=== PATIENT | female | born 1980 | race Caucasian/White ===

== ENCOUNTER 2016-03-27 13:32 | Emergency (ER) | payer OTHER ==
[2016-03-27 14:26] VITALS: BP 136/78
--- NOTE | 2016-03-27 14:57 | UC ---
Lower Extremity/Ankle HPI - HPI Summary HPI Summary: The patient comes in today for: 1. Left ankle pain/injury: Onset: Yesterday, she fell. Palliative/Provocative: Movement makes it worse. She took Excedrin this AM, but it did not help. Quality: Throbbing/pressure. Region: Back of the left ankle. Severity: 8/10 Time: Constant. Associated symptoms: Event: The patient states that she fell down the stairs due to the ice. She fell about 24 hours ago. She went to work after the injury. Numbness: None. "I've always had issues with me ankles from playing sports." * - History of Current Complaint Chief Complaint: UCLowerExtremity Stated Complaint: LEFT ANKLE PAIN-FALL Time Seen by Provider: 03/27/16 14:52 Hx Obtained From: Patient Hx Last Menstrual Period: 2 weeks ago. ?: No - Allergies/Home Medications Allergies/Adverse Reactions: Allergies Allergy/AdvReac Type Severity Reaction Status Date / Time Aspirin Allergy Rash Verified 03/27/16 14:21 Bupropion [From Wellbutrin] Allergy Seizure Verified 03/27/16 14:21 PMH/Surg Hx/FS Hx/Imm Hx Previously Healthy: Yes Endocrine History Of: Denies: Diabetes, Thyroid Disease, Hyperthyroidism, Hypothyroidism, Dyslipidemia Cardiovascular History Of: Denies: Cardiac Disorders, Hypertension, Pacemaker/ICD, Myocardial Infarction , Congestive Heart Failure, Atrial Fibrillation, Deep Vein Thrombosis, Bleeding Disorders Respiratory History Of: Denies: COPD, Asthma, Bronchitis, Pneumonia, Pulmonary Embolism GI/ History Of: Denies: Gastroesophageal Reflux, Ulcer, Gastrointestinal Bleed, Gall Bladder Disease, Kidney Stones, Diverticulitis, Renal Disease, Urosepsis Neurological History Of: Denies: TIA, CVA, Dementia, Seizures, Migraine Psychological History Of: Denies: Anxiety, Depression, Bipolar Disorder, Schizophrenia, Post Traumatic Stress Disorder Cancer History Of: Denies: Lung Cancer, Colorectal Cancer, Breast Cancer, Prostate Cancer, Cervical Cancer Other History Of: Negative For: HIV, Hepatitis B, Hepatitis C, Anticoagulant Therapy - Surgical History Surgical History: Yes Surgery Procedure, Year, and Place: , 2000 2004, [facility]. Tubal Ligation , 2003, [facility]. Right Ankle Surgery, 2010, [place] - Family History Known Family History: Positive: Cardiac Disease, Hypertension, Diabetes, Other - RA - Social History Occupation: Employed Full-time Alcohol Use: Rare Substance Use Type: None Smoking Status (MU): Heavy Every Day Tobacco Smoker Type: Cigarettes Amount Used/How Often: 1/2 PPD Length of Time of Smoking/Using Tobacco: 20 Years Have You Smoked in the Last Year: Yes When Did the Patient Quit Smoking/Using Tobacco: TWO WEEKS AGO Household Exposure Type: Cigarettes - Immunization History Most Recent Influenza Vaccination: Not the Season Review of Systems Constitutional: Negative Skin: Negative Eyes: Negative ENT: Negative Respiratory: Negative Cardiovascular: Negative Gastrointestinal: Negative Genitourinary: Negative Musculoskeletal: Arthralgia, Myalgia All Other Systems Reviewed And Are Negative: Yes Physical Exam Triage Information Reviewed: Yes Appearance: Well-Appearing, No Pain Distress - When sitting still., Well- Nourished Vital Signs: Initial Vital Signs Temp 98.2 F 03/27/16 14:20 Pulse 78 03/27/16 14:20 Resp 16 03/27/16 14:20 BP 136/78 03/27/16 14:20 Pulse Ox 100 03/27/16 14:20 Vital Signs Reviewed: Yes Eyes: Positive: Conjunctiva Clear. Negative: Discharge ENT: Positive: Hearing grossly normal. Negative: Pharyngeal erythema, Nasal congestion, Nasal drainage, TM bulging, TM dull, TM red, Tonsillar swelling, Tonsillar exudate Dental: Negative: Gross Decay/Caries @, Dental Fracture @ Neck: Positive: Supple, Nontender, No Lymphadenopathy. Negative: Nuchal Rigidity Respiratory: Positive: Chest non-tender, Lungs clear, No respiratory distress, No accessory muscle use. Negative: Crackles, Wheezing Cardiovascular: Positive: RRR, No Murmur Abdomen Description: Positive: Nontender, No Organomegaly, Soft. Negative: Distended, Guarding Musculoskeletal: Positive: Other: - Squeezing the calf muscles with the patient in the prone position did cause plantar flexion. Slight dorsiflexion and palpation of the Achilles tendon did not reveal any depression. There was pain with the above movement. However, there was no edema or ecchymosis. Neurological: Positive: Alert, Muscle Tone Normal Psychological: Positive: Age Appropriate Behavior, Consolable Skin: Negative: rashes, breakdown Diagnostics - Laboratory Diagnostic Studies Completed/Ordered: Left ankle x-ray report: IMPRESSION: Chronic small heel spurs. No traumatic injury evident. - Radiology No standard instances Xray Interpretation: No Acute Changes Radiology Interpretation Completed By: Radiologist Lower Extremity Course/Dx - Course Course Of Treatment: Patient was told of her x-ray reading. At this time, she does not want crutches or a gel splint as she has a cam boot. She did not want a work note. She has a relationship with a family orthopedic surgeon (Dr. Myers ) and she was encouraged to follow back up with Dr. Myers to make sure that she is doing well. If she gets worse, she is to see us. - Differential Dx/Diagnosis Differential Diagnosis/HQI/PQRI: Cellulitis, Gout, Sprain, Strain Provider Diagnoses: Left ankle sprain. Discharge - Discharge Plan Condition: Stable Disposition: HOME Patient Education Materials: Ankle Sprain (ED) Additional Instructions: Please follow up with your family orthopedic surgeon (Dr. Myers) later this week to see how well you are doing. If you get worse, please be seen sooner by us or the ER.
[2016-03-27] MEDS ORDERED: HYDROcodone/ACETAMIN 5-325 MG* 1 TAB PO ONE (15:06)
--- NOTE | 2016-03-27 15:28 | RAD ---
Indication: Posterior LEFT ankle pain in the Achilles region post fall yesterday. Comparison: September 27, 2015 LEFT hindfoot radiographs. Technique: AP, mortise, and lateral views LEFT ankle. Report: Normal articular alignment. Negative for fracture. Small Achilles tendon insertion and small plantar fascia origin bone spurs. Unremarkable soft tissue contours. IMPRESSION: Chronic small heel spurs. No traumatic injury evident.
== END 2016-03-27 15:54 | disposition home or self-care (01) ==
LOC: UCCORT 13:32
DX: S93.402A Sprain of unspecified ligament of left ankle, initial encounter (principal); M77.32 Calcaneal spur, left foot; W00.1XXA Fall from stairs and steps due to ice and snow, initial encounter; Y92.9 Unspecified place or not applicable; Z87.891 Personal history of nicotine dependence; Z88.6 Allergy status to analgesic agent; Z88.8 Allergy status to other drugs, medicaments and biological substances
CPT/HCPCS: 99212; G0463

== ENCOUNTER 2016-06-11 18:40 | Emergency (ER) | payer SELFPAY ==
[2016-06-11 19:24] VITALS: BP 125/77
--- NOTE | 2016-06-11 19:52 | UC ---
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 Has an enlaring hematoma of the thenar eminence. - History Of Current Complaint Chief Complaint: UCUpperExtremity Stated Complaint: RIGHT HAND INJURY Time Seen by Provider: 06/11/16 19:42 Hx Obtained From: Patient Hx Last Menstrual Period: 05/27/16 Onset/Duration: Sudden Onset Severity Initially: Moderate Severity Currently: Moderate Pain Intensity: 8 Pain Scale Used: 0-10 Numeric Character Of Pain: Aching, Throbbing Aggravating Factor(s): Movement Alleviating: Ice Associated Signs And Symptoms: Positive: Swelling Related History: Dominant Hand Right - Allergies/Home Medications Allergies/Adverse Reactions: Allergies Allergy/AdvReac Type Severity Reaction Status Date / Time Aspirin Allergy Rash Verified 06/11/16 19:23 Bupropion [From Wellbutrin] Allergy Seizure Verified 06/11/16 19:23 Home Medications: Home Medications NK [No Home Medications Reported] 06/11/16 [History Confirmed 06/11/16] PMH/Surg Hx/FS Hx/Imm Hx Previously Healthy: Yes Endocrine History Of: Denies: Diabetes, Thyroid Disease, Hyperthyroidism, Hypothyroidism, Dyslipidemia Cardiovascular History Of: Denies: Cardiac Disorders, Hypertension, Pacemaker/ICD, Myocardial Infarction , Congestive Heart Failure, Atrial Fibrillation, Deep Vein Thrombosis, Bleeding Disorders Respiratory History Of: Denies: COPD, Asthma, Bronchitis, Pneumonia, Pulmonary Embolism GI/ History Of: Denies: Gastroesophageal Reflux, Ulcer, Gastrointestinal Bleed, Gall Bladder Disease, Kidney Stones, Diverticulitis, Renal Disease, Urosepsis Neurological History Of: Denies: TIA, CVA, Dementia, Seizures, Migraine Psychological History Of: Denies: Anxiety, Depression, Bipolar Disorder, Schizophrenia, Post Traumatic Stress Disorder Cancer History Of: Denies: Lung Cancer, Colorectal Cancer, Breast Cancer, Prostate Cancer, Cervical Cancer Other History Of: Negative For: HIV, Hepatitis B, Hepatitis C, Anticoagulant Therapy - Surgical History Surgical History: Yes Surgery Procedure, Year, and Place: , 2000 2003, [facility]. Tubal Ligation , 2003, [facility]. Right Ankle Surgery, 2010, [place] - Family History Known Family History: Positive: Cardiac Disease, Hypertension, Diabetes, Other - RA - Social History Lives: With Family Alcohol Use: Rare Substance Use Type: None Smoking Status (MU): Heavy Every Day Tobacco Smoker Type: Cigarettes Amount Used/How Often: 1/2 PPD Length of Time of Smoking/Using Tobacco: 20 Years Have You Smoked in the Last Year: Yes When Did the Patient Quit Smoking/Using Tobacco: TWO WEEKS AGO Household Exposure Type: Cigarettes - Immunization History Most Recent Influenza Vaccination: Not the 2015/2016 Season Review of Systems Constitutional: Other - feels great, healthy, with no symptoms. Skin: Negative Eyes: Negative ENT: Negative Respiratory: Negative Cardiovascular: Negative Gastrointestinal: Negative Genitourinary: Negative Motor: Negative Neurovascular: Negative Musculoskeletal: Other: - right hand and wrist pain Neurological: Negative Psychological: Negative All Other Systems Reviewed And Are Negative: Yes Physical Exam Triage Information Reviewed: Yes Appearance: Well-Appearing Vital Signs: Initial Vital Signs Temp 97.2 F 06/11/16 19:20 Pulse 82 06/11/16 19:20 Resp 16 06/11/16 19:20 BP 125/77 06/11/16 19:20 Pulse Ox 100 06/11/16 19:20 Respiratory: Positive: Lungs clear, Normal breath sounds Cardiovascular: Positive: RRR, No Murmur Musculoskeletal: Positive: ROM Limited @ - right thumb decreased abduction, decreased extension of the right wrist. Swelling and induration of the right thenar eminence, suggestive of hematoma. Psychological Exam: Normal Diagnostics - Laboratory Diagnostic Studies Completed/Ordered: xray shows soft tissue swelling. Hand/Wrist Course/Dx - Course Course Of Treatment: splint, continue ice, hydrocodone for use tonight. - Differential Dx/Diagnosis Differential Diagnosis/HQI/PQRI: Sprain, Strain, Other - hematoma, crush injury Provider Diagnoses: crush injury right hand with soft tissue swelling/hematoma Discharge - Discharge Plan Condition: Stable Disposition: HOME Patient Education Materials: Crush Injury (ED) Referrals: Milka Flowers RN [Primary Care Provider] - Carolina Ignacio MD [Medical Doctor] - Additional Instructions: The swelling and bruising in your hand will take several weeks to heal. You have a referral to orthopedics to evaluate the ganglion on your wrist. When you schedule the visit ask to be seen in [place]. As discussed, you think that you can manage work without modifications.
[2016-06-11] MEDS ORDERED: Acetaminophen TAB* 325 MG PO ONE (19:53)
--- NOTE | 2016-06-11 20:18 | RAD ---
INDICATION: Pain at the RIGHT first and second metacarpals following crush injury. COMPARISON: December 23, 2013 TECHNIQUE: AP, lateral, and oblique views RIGHT hand. REPORT: Normal articular alignment. Negative for fracture. Mild soft tissue swelling over the dorsum of the hand at the level of the metacarpal phalangeal joints. IMPRESSION: Mild dorsal soft tissue swelling without additional finding.
[2016-06-11] MEDS ORDERED: HYDROcodone/ACETAMIN 5-325 MG* 1 TAB PO ONE (20:39)
== END 2016-06-11 20:50 | disposition home or self-care (01) ==
LOC: UCCORT 18:40
DX: S67.21XA Crushing injury of right hand, initial encounter (principal); W20.8XXA Other cause of strike by thrown, projected or falling object, initial encounter; Y93.9 Activity, unspecified; Y99.9 Unspecified external cause status; Z88.6 Allergy status to analgesic agent; Z88.8 Allergy status to other drugs, medicaments and biological substances
CPT/HCPCS: 99212; A9270-GY; G0463

== ENCOUNTER 2016-06-30 07:29 | Day surgery (SDC) | payer OTHER ==
--- NOTE | 2016-06-20 10:00 | HP ---
PREOPERATIVE HISTORY AND PHYSICAL: DATE OF SURGERY/ADMISSION: 06/30/16 [facility] ATTENDING SURGEON: Carolina Ignacio MD (dictated by SWATI Levine) PROCEDURE: Right wrist excision mass. CHIEF COMPLAINT: Mass, right wrist. HISTORY OF PRESENT ILLNESS: This is a 36-year-old female who complains of a lump on the volar radial aspect of her right wrist that has been present for about 3 months. The patient denies any injury; however, she works in a [employer] and is doing a lot of repetitive motions with her wrists and hands. The lump has become very painful and it bothers her when she is working. It feels better when she does not use her wrist. She is interested in having it removed surgically at this time and has agreed to proceed with excision of the mass. PAST MEDICAL HISTORY: 1. Asthma, exercise induced. 2. Arthritis. PAST SURGICAL HISTORY: 1. x2. 2. Right ankle surgery in 2009. CURRENT MEDICATIONS: Ventolin inhaler. ALLERGIES: 1. ASPIRIN causes hives. 2. WELLBUTRIN causes seizure. FAMILY HISTORY: Hypertension and diabetes. SOCIAL HISTORY: The patient is employed at a [employer] in [place]. She is a current smoker, approximately a quarter of a pack per day and has smoked for the past 20 years. She denies recreational drug use and admits to alcohol use on very rare occasions. REVIEW OF SYSTEMS: General: Negative for fevers, chills or night sweats. No known anesthesia problems. HEENT: Negative for headache, lightheadedness or syncopal episodes. Integumentary: Negative for abrasions, lesions, or open wounds. Cardiothoracic: Negative for hypertension, chest pain, palpitations, or edema. Pulmonary: Positive for asthma and associated shortness of breath with exertion. Negative for chronic cough or COPD. GI: Negative for nausea, vomiting, diarrhea, constipation or GERD. : Negative for nocturia, urinary frequency, urgency, history of UTIs, or kidney problems. Musculoskeletal: Positive for current complaint. Negative for chronic or intermittent back pain. Neurological: Positive for history of seizure related to Wellbutrin. Negative for paresthesias, numbness, history of stroke, or epilepsy. Endocrine : Negative for diabetes or thyroid issues. Hematologic: Negative for easy bruising, anemia, excessive bleeding, or history of DVT. Infectious Disease: Negative for history of MRSA, hepatitis C, or HIV. PHYSICAL EXAMINATION GENERAL: Well-developed, well-nourished 36-year-old female in no acute distress. VITAL SIGNS: Height 5 feet 3.5 inches, weight 192 pounds. Pulse rate 70, blood pressure 125/86. HEENT: Normocephalic, atraumatic. Pupils are equal, round, and reactive to light and accommodation. Extraocular movements are intact. NECK: Supple. No palpable lymph nodes. Throat is clear. PULMONARY: Lungs are clear to auscultation bilaterally. No wheezes, rales or rhonchi. CARDIOVASCULAR: Regular rate and rhythm. S1 and S2. No murmurs, rubs, or gallops. No edema. ABDOMEN: Positive bowel sounds, soft, nontender. NEUROLOGIC: Alert and oriented x3. Cranial nerves II through XII are intact. Sensation is intact to light touch. PERIPHERAL VASCULAR: 2+ radial and ulnar pulses. Negative Morales test. MUSCULOSKELETAL: On exam of her right wrist, she has a 6 to 8 mm diameter tender mass on the volar radial aspect of the wrist. She can flex and extend the wrists well, but has increased pain with wrist extension, especially with load bearing. She has full flexion and extension of her fingers and neurovascular function is intact. IMPRESSION: Ganglion cyst, right wrist. PLAN: The patient is scheduled to undergo right wrist excision mass with Dr. Ignacio on 06/30/16. She will return to the office 10 to 14 days postop for followup and suture removal. A prescription for Ultracet was e-scribed to the patient's pharmacy for postoperative pain management. SWATI LEVINE [id number]/[facility] #: [id number] RUSSEL
[~2016-06-30 07:29] MED LIST: Buffered Lidocaine 1% SYR 3ML* 3 ML/SYR SYRINGE INTRADERM ONE
[2016-06-30] MEDS ORDERED: Buffered Lidocaine 1% SYRIN* 5 ML/SYR SYRINGE ONE (07:45)
[2016-06-30] MEDS ORDERED: Lidocaine 1% INJ* 10 MG/ML 30 ML SDV ONE (08:17)
[2016-06-30] MEDS ORDERED: fentaNYL* 50 MCG/ML 2 ML VIAL (100 MCG VIAL) ONE (08:42)
[2016-06-30] MEDS ORDERED: Midazolam* 1 MG/ML 5 ML VIAL (5 MG) ONE (08:42)
[2016-06-30] MEDS ORDERED: Ondansetron INJ* 2 MG/ML VIAL IV PRN (09:05)
[2016-06-30 10:13] VITALS: BP 121/94
--- NOTE | 2016-07-01 | OP ---
DATE OF OPERATION: 06/30/[address] [facility] DATE OF : 80 SURGEON: Carolina Ignacio MD [employer] PERSON: SWATI Odonnell ANESTHESIOLOGIST: Patria Castillo MD ANESTHESIA: Local MAC. PRE-OP DIAGNOSIS: Right wrist mass. POST-OP DIAGNOSIS: Right wrist mass. OPERATIVE PROCEDURE: Removal of right wrist mass. ESTIMATED BLOOD LOSS: Zero. TOURNIQUET TIME: Approximately 8 minutes. INDICATIONS FOR PROCEDURE: Annamaria is a 36-year-old female with a painful mass on the volar radial aspect of her right wrist. She presents for right wrist mass removal. DESCRIPTION OF PROCEDURE: The patient was brought to the operating room. She was given a sedation anesthetic and a local infiltration of 10 cc of 1% plain lidocaine. The skin of her right hand and forearm was prepped and draped in the usual sterile fashion. The hand and forearm were exsanguinated and tourniquet elevated to 250 mmHg. A Chevron incision was made centered over the mass. We dissected bluntly into the subcutaneous tissue. The mass was emanating from the FCR tendon sheath and from the STT joint, was carefully traced down to the STT joint, and removed with the small portion of the wrist joint capsule. The edges of the capsule were cauterized with the Bovie. The wound was irrigated. The skin edges reapproximated with 4-0 nylon suture. The wound was dressed with Xeroform, 4x4, Webril and an Wing wrap. The patient tolerated the procedure well and was brought to the recovery room in good condition. [id number]/[facility] #: [id number] [facility] CENTERCorey
== END 2016-06-30 10:09 | disposition home or self-care (01) ==
LOC: OREAST 07:29
PROVIDERS: ATTEND Orthopaedic Surgery
DX: M67.431 Ganglion, right wrist (principal); F17.210 Nicotine dependence, cigarettes, uncomplicated
CPT/HCPCS: 88304; J2001; J2250; J3010

== ENCOUNTER 2017-05-11 15:05 | Emergency (ER) | payer OTHER ==
[2017-05-11 15:42] VITALS: BP 138/85
--- NOTE | 2017-05-11 16:07 | UC ---
Lower Extremity/Ankle HPI - HPI Summary HPI Summary: Pt c/o possible FB, wooden sliver in bottom of left foot. Pt attempted to remove at home. - History of Current Complaint Chief Complaint: UCLowerExtremity Stated Complaint: LFT FOOT INJURY Time Seen by Provider: 05/11/17 15:45 Hx Obtained From: Patient Hx Last Menstrual Period: 05/27/16 ?: No Onset/Duration: Sudden Onset Severity Initially: Mild Severity Currently: Mild Pain Intensity: 8 Aggravating Factor(s): Standing, Ambulation Alleviating Factor(s): Rest, Elevation Able to Bear Weight: Yes - minimal - Risk Factors DVT Risk Factors: Negative Septic Arthritis Risk Factor: Negative - Allergies/Home Medications Allergies/Adverse Reactions: Allergies Allergy/AdvReac Type Severity Reaction Status Date / Time aspirin Allergy Rash Verified 05/11/17 15:33 bupropion [From Wellbutrin] Allergy See Comment Verified 05/11/17 15:33 Home Medications: Home Medications Levothyroxine TAB* [Synthroid TAB*] 50 mcg DAILY 05/11/17 [History Confirmed ] PMH/Surg Hx/FS Hx/Imm Hx Previously Healthy: Yes Other History Of: Negative For: HIV, Hepatitis B, Hepatitis C, Anticoagulant Therapy - Surgical History Surgical History: Yes Surgery Procedure, Year, and Place: , 2000 2003, [facility]. Tubal Ligation , 2003, [facility]. Right Ankle Surgery, 2010, [place]. Hysterectomy, JAN 2017, [facility] - Family History Known Family History: Positive: Cardiac Disease, Hypertension, Diabetes, Other - RA - Social History Occupation: Employed Full-time Lives: With Family Alcohol Use: None Substance Use Type: None Smoking Status (MU): Heavy Every Day Tobacco Smoker Type: Cigarettes Amount Used/How Often: 1/2 PPD for 21 years Length of Time of Smoking/Using Tobacco: 20 Years Have You Smoked in the Last Year: Yes When Did the Patient Quit Smoking/Using Tobacco: TWO WEEKS AGO Household Exposure Type: Cigarettes - Immunization History Most Recent Influenza Vaccination: Not the 2015/2016 Season Review of Systems Constitutional: Negative Skin: Other - possible FB Eyes: Negative ENT: Negative Respiratory: Negative Cardiovascular: Negative Gastrointestinal: Negative Genitourinary: Negative Motor: Negative Neurovascular: Negative Musculoskeletal: Negative Neurological: Negative Psychological: Negative Is Patient Immunocompromised?: No All Other Systems Reviewed And Are Negative: Yes Physical Exam Triage Information Reviewed: Yes Appearance: Well-Appearing Vital Signs: Initial Vital Signs Temp 97.6 F 05/11/17 15:36 Pulse 72 05/11/17 15:36 Resp 16 05/11/17 15:36 BP 138/85 05/11/17 15:36 Pulse Ox 100 05/11/17 15:36 Vital Signs Reviewed: Yes Eye Exam: Normal ENT Exam: Normal Dental Exam: Normal Respiratory: Positive: No respiratory distress Musculoskeletal Exam: Normal Neurological Exam: Normal Psychological Exam: Normal Skin Exam: Other - FB removed, tiny wooden splinter removed Lower Extremity Course/Dx - Differential Dx/Diagnosis Differential Diagnosis/HQI/PQRI: Foreign Body Provider Diagnoses: FB removed left foot Discharge - Sign-Out/Discharge Documenting (check all that apply): Discharge - Discharge Plan Condition: Stable Disposition: HOME Patient Education Materials: Soft Tissue Foreign Body (ED) Referrals: Christine KOCH DIRECTOR ONLINE MARKETINGMilka [Primary Care Provider] - If Needed - Billing Disposition and Condition Condition: STABLE Disposition: HOME
== END 2017-05-11 15:59 | disposition home or self-care (01) ==
LOC: UCCORT 15:05
DX: S90.852A Superficial foreign body, left foot, initial encounter (principal); W45.8XXA Other foreign body or object entering through skin, initial encounter; Y92.9 Unspecified place or not applicable; F17.210 Nicotine dependence, cigarettes, uncomplicated; Z88.6 Allergy status to analgesic agent
CPT/HCPCS: 28190; 99211; G0463

== ENCOUNTER 2017-05-19 07:43 | Emergency (ER) | payer OTHER ==
[2017-05-19 08:01] VITALS: BP 124/79
[2017-05-19] MEDS ORDERED: Acetaminophen TAB* 325 MG PO ONE (08:18)
--- NOTE | 2017-05-19 08:25 | UC ---
Upper Extremity HPI - HPI Summary HPI Summary: pt got her R ring finger crush under a heavy tool box yesterday. c/o pain, swelling and tingling to finger. states it is hard to bend and straighten due to her pain. - History of Current Complaint Chief Complaint: UCUpperExtremity Stated Complaint: RIGHT RING FINGER INJURY Time Seen by Provider: 05/19/17 08:13 Hx Obtained From: Patient Hx Last Menstrual Period: 01/2017 Onset/Duration: Sudden Onset Pain Intensity: 8 Character: Aching, Throbbing Aggravating Factor(s): Movement, Flexion, Extension Alleviating Factor(s): Nothing Associated Signs And Symptoms: Positive: Swelling, Bruising, Numbness/Tingling - Allergies/Home Medications Allergies/Adverse Reactions: Allergies Allergy/AdvReac Type Severity Reaction Status Date / Time aspirin Allergy Rash Verified 05/19/17 08:02 bupropion [From Wellbutrin] Allergy See Comment Verified 05/19/17 08:02 Home Medications: Home Medications Ibuprofen TAB* [Motrin TAB* 800 MG] 800 mg PO ONCE PRN 05/19/17 [History Confirmed 05/19/17] PMH/Surg Hx/FS Hx/Imm Hx Endocrine History: Thyroid Disease Other History Of: Negative For: HIV, Hepatitis B, Hepatitis C, Anticoagulant Therapy - Surgical History Surgical History: Yes Surgery Procedure, Year, and Place: , 2000 2003, [facility]. Tubal Ligation , 2003, [facility]. Right Ankle Surgery, 2010, [place]. Hysterectomy, JAN 2017, [facility] - Family History Known Family History: Positive: Cardiac Disease, Hypertension, Diabetes, Other - RA - Social History Occupation: Employed Full-time Lives: With Family Alcohol Use: None Substance Use Type: None Smoking Status (MU): Heavy Every Day Tobacco Smoker Type: Cigarettes Amount Used/How Often: 1/2 PPD for 21 years Length of Time of Smoking/Using Tobacco: 20 Years Have You Smoked in the Last Year: Yes When Did the Patient Quit Smoking/Using Tobacco: TWO WEEKS AGO Household Exposure Type: Cigarettes - Immunization History Most Recent Influenza Vaccination: Not the 2015/2016 Season Most Recent Tetanus Shot: 2009 Review of Systems Constitutional: Negative Skin: Negative Eyes: Negative ENT: Negative Respiratory: Negative Cardiovascular: Negative Gastrointestinal: Negative Genitourinary: Negative Motor: Negative Neurovascular: Negative Musculoskeletal: Other: - pain, swelling R 4th finger Neurological: Negative Psychological: Negative Is Patient Immunocompromised?: No All Other Systems Reviewed And Are Negative: Yes Physical Exam Triage Information Reviewed: Yes Appearance: Well-Appearing Vital Signs: Initial Vital Signs Temp 98.6 F 05/19/17 07:55 Pulse 74 05/19/17 07:55 Resp 18 05/19/17 07:55 BP 124/79 05/19/17 07:55 Pulse Ox 100 05/19/17 07:55 Vital Signs Reviewed: Yes Eyes: Positive: Conjunctiva Clear ENT: Positive: Normal ENT inspection Neck: Positive: Supple, Nontender Respiratory: Positive: Lungs clear, Normal breath sounds Cardiovascular: Positive: RRR, No Murmur Abdomen Description: Positive: Nontender, No Organomegaly, Soft Bowel Sounds: Positive: Present Musculoskeletal: Positive: Other: - R 4th finger with tenderness, swelling and purple bruising. Limited flexion/extension(pt refusing due to pain). Rest of hand is atraumatic with full s/v/m function. Neurological: Positive: Alert Psychological: Positive: Age Appropriate Behavior Skin Exam: Normal Diagnostics - Radiology No standard instances Radiology Interpretation Completed By: Radiologist - no fx, sts Upper Extremity Course/Dx - Course Course Of Treatment: Procedure: volar aluminum foam splint R 4th finger. s/v intact after. splint applied by myself. No concern for infection or compartment syndrom - Differential Dx/Diagnosis Provider Diagnoses: Contusion R 4th finger Discharge - Sign-Out/Discharge Documenting (check all that apply): Discharge - Discharge Plan Condition: Stable Disposition: HOME Patient Education Materials: Contusion in Adults (ED) Referrals: Milka Flowers RN [Primary Care Provider] - 7 Days Additional Instructions: SPLINT FOR COMFORT - Billing Disposition and Condition Condition: STABLE Disposition: HOME
--- NOTE | 2017-05-19 08:49 | RAD ---
INDICATION: Right ring finger injury. TECHNIQUE: 3 views of the right ring finger were obtained. FINDINGS: There is diffuse soft tissue swelling. The bones are in normal alignment. No fracture is seen. Joint spaces appear maintained. IMPRESSION: SOFT TISSUE SWELLING, NO FRACTURE IS SEEN.
== END 2017-05-19 09:17 | disposition home or self-care (01) ==
LOC: UCCORT 07:43
DX: S60.041A Contusion of right ring finger without damage to nail, initial encounter (principal); W23.0XXA Caught, crushed, jammed, or pinched between moving objects, initial encounter; Y93.9 Activity, unspecified; Y92.9 Unspecified place or not applicable; Y99.0 Civilian activity done for income or pay; Z88.6 Allergy status to analgesic agent; Z88.8 Allergy status to other drugs, medicaments and biological substances; Z87.891 Personal history of nicotine dependence
CPT/HCPCS: 73140; 99212; A9270-GY; G0463

== ENCOUNTER 2017-09-22 10:59 | Emergency (ER) | payer OTHER ==
[2017-09-22 11:32] VITALS: BP 128/89
--- NOTE | 2017-09-22 12:21 | UC ---
Hand/Wrist HPI - HPI Summary HPI Summary: 1 pt accidently hit the back of her L hand on a table a week ago. she notes ongoing-worsening pain/swelling over the back of hand, base of index and middle fingers. worse with movement but doesn't restrict her use of the hand or her job. 2. rash in skin fold of lower abdomen. no itch. notes about 2-3 weeks ago. - History Of Current Complaint Chief Complaint: UCUpperExtremity Stated Complaint: LEFT HAND COMPLAINT Time Seen by Provider: 09/22/17 12:11 Hx Obtained From: Patient Hx Last Menstrual Period: 01/2017 Onset/Duration: Gradual Onset Pain Intensity: 4 Associated Signs And Symptoms: Negative: Fever, Weakness, Numbness/Tingling - Allergies/Home Medications Allergies/Adverse Reactions: Allergies Allergy/AdvReac Type Severity Reaction Status Date / Time aspirin Allergy Rash Verified 09/22/17 11:29 bupropion [From Wellbutrin] Allergy See Comment Verified 09/22/17 11:29 PMH/Surg Hx/FS Hx/Imm Hx Endocrine History: Thyroid Disease Other History Of: Negative For: HIV, Hepatitis B, Hepatitis C, Anticoagulant Therapy - Surgical History Surgical History: Yes Surgery Procedure, Year, and Place: , 2000 2003, [facility]. Tubal Ligation , 2003, [facility]. Right Ankle Surgery, 2010, [place]. Hysterectomy, JAN 2017, [facility] - Family History Known Family History: Positive: Cardiac Disease, Hypertension, Diabetes, Other - RA - Social History Occupation: Employed Full-time Lives: With Family Alcohol Use: Rare Substance Use Type: None Smoking Status (MU): Heavy Every Day Tobacco Smoker Type: Cigarettes Amount Used/How Often: 1/2 PPD for 21 years Length of Time of Smoking/Using Tobacco: 20 Years Have You Smoked in the Last Year: Yes When Did the Patient Quit Smoking/Using Tobacco: TWO WEEKS AGO Household Exposure Type: Cigarettes - Immunization History Most Recent Influenza Vaccination: Not the 2015/2016 Season Most Recent Tetanus Shot: 2009 Vaccination Up to Date: Yes Review of Systems Constitutional: Negative Skin: Rash - low abdomen Eyes: Negative ENT: Negative Respiratory: Negative Cardiovascular: Negative Gastrointestinal: Negative Genitourinary: Negative Motor: Negative Neurovascular: Negative Musculoskeletal: Other: - pain / swell L hand Neurological: Negative Psychological: Negative Is Patient Immunocompromised?: No All Other Systems Reviewed And Are Negative: Yes Physical Exam Triage Information Reviewed: Yes Appearance: Well-Appearing Vital Signs: Initial Vital Signs Temp 97.4 F 09/22/17 11:26 Pulse 79 09/22/17 11:26 Resp 16 09/22/17 11:26 BP 128/89 09/22/17 11:26 Pulse Ox 100 09/22/17 11:26 Vital Signs Reviewed: Yes Eyes: Positive: Conjunctiva Clear ENT: Positive: Normal ENT inspection Neck: Positive: Supple, Nontender, No Lymphadenopathy Respiratory: Positive: Lungs clear, Normal breath sounds Cardiovascular: Positive: RRR, No Murmur Abdomen Description: Positive: Nontender, No Organomegaly, Soft Bowel Sounds: Positive: Present, Other: - Mild pink and peeling in skin fold c/ w tinea corporis Musculoskeletal: Positive: Other: - LUE: shoulder, elbow. wrist are atraumatic. Dorsal hand with mild swelling base index and middle fingers plus slightly pink but not warm. Area of swelling is tender. hand has full s/v/m function. Neurological: Positive: Alert Psychological: Positive: Age Appropriate Behavior Skin Exam: Normal Skin: Positive: rashes - see abdomen exam Diagnostics - Radiology No standard instances Radiology Interpretation Completed By: Radiologist - Left Hand=FINDINGS: The bones are in normal alignment. No fracture is seen. Joint spaces appear maintained. Hand/Wrist Course/Dx - Course Course Of Treatment: tinea corporis to abominal skin fold, will tx nystatin powder. no fx on hand xray.. hx supports contusion. since pink and worse, will cover for possible early skin infection. - Differential Dx/Diagnosis Provider Diagnoses: Tinea corporis. Contusion left hand. Possible early cellulitis left hand Discharge - Sign-Out/Discharge Documenting (check all that apply): Patient Departure - Discharge Plan Condition: Stable Disposition: HOME Prescriptions: Cephalexin CAP* [Keflex CAP*] 500 mg PO TID 7 Days #21 cap Nystatin TOP POWDER* 1 applic TOPICAL BID 30 Days #1 btl Patient Education Materials: Tinea Corporis (ED), Contusion in Adults (ED), Cellulitis (DC) Referrals: Christine KOCH SPECTROGRAPHER,Milka [Nurse Practitioner] - Additional Instructions: HAVE A RECHECK IMMEDIATELY FOR ANY CHANGES OR WORSENING. - Billing Disposition and Condition Condition: STABLE Disposition: Home
--- NOTE | 2017-09-22 12:55 | RAD ---
INDICATION: Left hand injury. TECHNIQUE: 4 views of the left hand were obtained. There is a ring on the patient's fourth finger limiting the study slightly. FINDINGS: The bones are in normal alignment. No fracture is seen. Joint spaces appear maintained. IMPRESSION: NO EVIDENCE FOR FRACTURE.
== END 2017-09-22 13:21 | disposition home or self-care (01) ==
LOC: UCCORT 10:59
DX: B35.4 Tinea corporis (principal); S60.222A Contusion of left hand, initial encounter; W22.03XA Walked into furniture, initial encounter; Y93.9 Activity, unspecified; Y92.9 Unspecified place or not applicable; Z87.891 Personal history of nicotine dependence
CPT/HCPCS: 99212; G0463

== ENCOUNTER 2017-09-27 12:06 | Emergency (ER) | payer OTHER ==
[2017-09-27 12:27] VITALS: BP 137/78
--- NOTE | 2017-09-27 12:38 | UC ---
Hand/Wrist HPI - HPI Summary HPI Summary: left thumb pain x 1 day crushing injury to her left thumb this morning at work her thumb got stock between 2 heavy plate, - History Of Current Complaint Chief Complaint: UCUpperExtremity Stated Complaint: LT THUMB INJURY-WC Time Seen by Provider: 09/27/17 12:09 Hx Obtained From: Patient Hx Last Menstrual Period: JAN 2017, HYSTERECTOMY ?: No Mechanism Of Injury: crushing injury to left thumb at work Onset/Duration: Sudden Onset Severity Initially: Moderate Severity Currently: Moderate Pain Intensity: 8 Character Of Pain: Aching, Throbbing Aggravating Factor(s): Movement Alleviating Factor(s): Rest, Ice Associated Signs And Symptoms: Positive: Swelling, Weakness, Numbness/Tingling. Negative: Redness - Allergies/Home Medications Allergies/Adverse Reactions: Allergies Allergy/AdvReac Type Severity Reaction Status Date / Time aspirin Allergy Rash Verified 09/27/17 12:20 bupropion [From Wellbutrin] Allergy See Comment Verified 09/27/17 12:20 PMH/Surg Hx/FS Hx/Imm Hx Endocrine History: Thyroid Disease Other History Of: Negative For: HIV, Hepatitis B, Hepatitis C, Anticoagulant Therapy - Surgical History Surgical History: Yes Surgery Procedure, Year, and Place: , 2000 2003, [facility]. Tubal Ligation , 2003, [facility]. Right Ankle Surgery, 2010, [place]. Hysterectomy, JAN 2017, [facility] - Family History Known Family History: Positive: Cardiac Disease, Hypertension, Diabetes, Other - RA - Social History Alcohol Use: None Substance Use Type: None Smoking Status (MU): Heavy Every Day Tobacco Smoker Type: Cigarettes Amount Used/How Often: 1/2 PPD for 21 years Length of Time of Smoking/Using Tobacco: 20 Years Have You Smoked in the Last Year: Yes When Did the Patient Quit Smoking/Using Tobacco: TWO WEEKS AGO Household Exposure Type: Cigarettes - Immunization History Most Recent Influenza Vaccination: Not the 2016/2016 Season Most Recent Tetanus Shot: 2009 Vaccination Up to Date: Yes Review of Systems Constitutional: Negative Skin: Negative Eyes: Negative ENT: Negative Respiratory: Negative Is Patient Immunocompromised?: No All Other Systems Reviewed And Are Negative: Yes Physical Exam Triage Information Reviewed: Yes Appearance: Well-Appearing, Well-Nourished, Pain Distress Vital Signs: Initial Vital Signs Temp 98.3 F 09/27/17 12:21 Pulse 74 09/27/17 12:21 Resp 18 09/27/17 12:21 BP 137/78 09/27/17 12:21 Pulse Ox 100 09/27/17 12:21 Vital Signs Reviewed: Yes Eyes: Positive: Conjunctiva Clear ENT: Positive: Normal ENT inspection, Hearing grossly normal, Pharynx normal Neck: Positive: Supple, Nontender, No Lymphadenopathy Respiratory: Positive: Chest non-tender, Lungs clear, Normal breath sounds Cardiovascular: Positive: RRR, No Murmur, Pulses Normal Musculoskeletal: Positive: Other: - left thumb : mild swelling, diffuse tenderness, limited ROM on flexion and extension due to pain . Skin Exam: Normal Diagnostics - Laboratory Diagnostic Studies Completed/Ordered: xray left thumb : no fracture seen Hand/Wrist Course/Dx - Differential Dx/Diagnosis Provider Diagnoses: crushing injury left thumb Discharge - Sign-Out/Discharge Documenting (check all that apply): Patient Departure - Discharge Plan Condition: Stable Disposition: HOME Patient Education Materials: Crush Injury (ED) Referrals: No Primary Care Phys,NOPCP [Primary Care Provider] - 7 Days - Billing Disposition and Condition Condition: STABLE Disposition: Home
--- NOTE | 2017-09-27 14:10 | RAD ---
INDICATION: Left thumb injury. TECHNIQUE: 3 views of the left thumb were obtained. FINDINGS: The bones are in normal alignment. No fracture is seen. Joint spaces appear maintained. IMPRESSION: NO EVIDENCE FOR FRACTURE.
== END 2017-09-27 13:10 | disposition home or self-care (01) ==
LOC: UCCORT 12:06
DX: S67.02XA Crushing injury of left thumb, initial encounter (principal); W23.0XXA Caught, crushed, jammed, or pinched between moving objects, initial encounter; Y92.9 Unspecified place or not applicable; F17.210 Nicotine dependence, cigarettes, uncomplicated; Z88.6 Allergy status to analgesic agent; Z88.8 Allergy status to other drugs, medicaments and biological substances
CPT/HCPCS: 99213; G0463

== ENCOUNTER 2018-03-13 12:02 | Emergency (ER) | payer OTHER ==
[2018-03-13 12:15] VITALS: BP 141/90
--- NOTE | 2018-03-13 12:38 | UC ---
Skin Complaint HPI - HPI Summary HPI Summary: Patient presents to urgent care stating for the last 2 days she's had progressive discomfort of her bilateral breasts. Patient states this morning both are very tender to gentle palpation. Patient with mild erythema along each breast. Patient states it feels similar to when she had mastitis when she was breast-feeding 15 years ago. Patient denies any drainage from her nipples. Patient has not had a mammogram since 2000. Patient denies any fevers or chills. Patient is immunocompromised as she gets methotrexate once a week for her arthritis. Patient's last dose was Sunday evening. Patient patient denies any chest pain or shortness of breath. No nausea vomiting. Patient also states she has a "yeast infection: The her left breast has been there for approximately 2 weeks that she will likely that as well. Patient has not taken anything for pain. Patient denies any fevers, chills, rigors.. Patient is on Methotrexate for RA Pt's medications reviewed this visit - History of Current Complaint Chief Complaint: UCSkin Time Seen by Provider: 03/13/18 12:38 Stated Complaint: PERSONAL Hx Obtained From: Patient Hx Last Menstrual Period: JAN 2017, HYSTERECTOMY ?: No - Pt with hysterectomy, 1 retained ovary Onset/Duration: Gradual Onset, Lasting Days Skin Exposure Onset/Duration: Days Ago Onset Severity: Moderate Current Severity: Moderate Pain Intensity: 7 Pain Scale Used: 0-10 Numeric - Allergy/Home Medications Allergies/Adverse Reactions: Allergies Allergy/AdvReac Type Severity Reaction Status Date / Time aspirin Allergy Rash Verified 03/13/18 12:15 bupropion [From Wellbutrin] Allergy See Comment Verified 03/13/18 12:15 Home Medications: Home Medications metHOTREXate sodium [Trexall] 5 mg PO WEEKLY 03/13/18 [History Confirmed ] PMH/Surg Hx/FS Hx/Imm Hx Previously Healthy: Yes - RA - methotrexate Other History Of: Negative For: HIV, Hepatitis B, Hepatitis C, Anticoagulant Therapy - Surgical History Surgical History: Yes Surgery Procedure, Year, and Place: , 2000 2003, [facility]. Tubal Ligation , 2003, [facility]. Right Ankle Surgery, 2010, [place]. Hysterectomy, JAN 2017, [facility] - Family History Known Family History: Positive: Cardiac Disease, Hypertension, Diabetes, Other - RA - Social History Occupation: Employed Full-time Lives: With Family Alcohol Use: None Substance Use Type: None Smoking Status (MU): Heavy Every Day Tobacco Smoker Type: Cigarettes Amount Used/How Often: 1/2 PPD for 21 years Length of Time of Smoking/Using Tobacco: 20 Years Have You Smoked in the Last Year: Yes When Did the Patient Quit Smoking/Using Tobacco: TWO WEEKS AGO Household Exposure Type: Cigarettes - Immunization History Most Recent Influenza Vaccination: Not the 2015/2016 Season Most Recent Tetanus Shot: 2009 Vaccination Up to Date: Yes Review of Systems All Other Systems Reviewed And Are Negative: Yes Skin: Positive: Other - breast Is Patient Immunocompromised?: Yes - methotrexate Physical Exam - Summary Physical Exam Summary: Vital Signs Reviewed: Yes A+Ox3, no distress Eyes: Conjunctiva Clear, JAIDEN. EOM intact and full ENT: Hearing grossly normal TM x 2 clear, mmoist, uvula midline, no exudate, no erythema Neck: Positive: Supple Respiratory: Positive: No respiratory distress, No accessory muscle use + CTA throughout no w/r Cardiovascular: RRR nl s1, s2 no m/r CBT <2 sec abd soft + BS nt/nd no guarding, no distension Musculoskeletal Exam: AUGUST x 4 without difficulty Strength Intact, ROM Intact Neurological: Positive: Alert, + sensation throughout Psychological: Positive: Normal Response To Family Skin: Positive: Bilateral breasts: TTP anterior breast superior margin to nipple. Pt with mild fullness and mild erythema to each breast right - medial/ superior edge of ipple with mild induration left: lateral superior margin of nipple no warm no fluctuance + TTP nipples not inverted, no discarge, mild induration. No axillary LA b/l Under left breast, medial margin by sternum pt wth circular, flat, with raised margins, no warmth, edema - c/w yeast Triage Information Reviewed: Yes Appearance: Pain Distress - discomfort with movement Vital Signs: Initial Vital Signs Temp 97.8 F 03/13/18 12:11 Pulse 80 03/13/18 12:11 Resp 16 03/13/18 12:11 BP 141/90 03/13/18 12:11 Pulse Ox 99 03/13/18 12:11 Course/Dx - Course Course Of Treatment: Pt presents with bilateral sensitivity, fullness, and discomfort superior nipple b/l breast with induration. No erythema, no drainage. no nipple change or drainage. Pt states fill simiarl to mastitis from years past. Pt is immunocompromised. Will start abx. Pt has appt on Sunday with PCP. strict return precaution. moist heat. APAP. strict return precuations. Under left breast likely tinea -will Rx topical antifungal - Diagnoses Provider Diagnosis: Breast pain, Tinea Discharge - Sign-Out/Discharge Documenting (check all that apply): Patient Departure All imaging exams completed and their final reports reviewed: No Studies - Discharge Plan Condition: Stable Disposition: HOME Prescriptions: Amoxicillin/Clavulanate TAB* [Augmentin TAB 875*] 875 mg PO BID #20 tab Nystatin CREAM* [Nystatin Cream*] 1 applic TOPICAL BID #1 tube Patient Education Materials: Mastitis (ED), Tinea Corporis (ED) Forms: *Work Release Referrals: No Primary Care Phys,NOPCP [Primary Care Provider] - Additional Instructions: Keep your appointment with your doctor on Sunday as scheduled -Dr. Caraballo alternate ibuprofen (Advil, Motrin) and tylenol every 3 hours for pain and fever. take with food Apply warm soaks to your breast Keep your appointment as scheduled on Sunday. If your symptoms worsen - increased pain, fever, reddness, swelling, red streaking or ANY Other concerns it is recommended you go to the emergency for further evaluation and treatment. As discussed - this is a unusual presentation for mastitis - it is very important you follow-up with your primary care provider - Billing Disposition and Condition Condition: STABLE Disposition: Home
[2018-03-13] MEDS ORDERED: Acetaminophen TAB* 325 MG PO ONE (12:56)
== END 2018-03-13 13:06 | disposition home or self-care (01) ==
LOC: UCCORT 12:02
DX: N64.4 Mastodynia (principal); B35.4 Tinea corporis; M06.9 Rheumatoid arthritis, unspecified; Z88.6 Allergy status to analgesic agent; Z88.8 Allergy status to other drugs, medicaments and biological substances; Z87.891 Personal history of nicotine dependence
CPT/HCPCS: 99212; A9270-GY; G0463

== ENCOUNTER 2018-04-03 09:38 | Emergency (ER) | payer OTHER ==
[2018-04-03 10:45] VITALS: BP 117/76
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
[2018-04-03] MEDS ORDERED: Acetaminophen TAB* 325 MG PO ONE (10:58)
== END 2018-04-03 11:40 | disposition home or self-care (01) ==
LOC: UCCORT 09:38
DX: S46.911A Strain of unspecified muscle, fascia and tendon at shoulder and upper arm level, right arm, initial encounter (principal); F17.210 Nicotine dependence, cigarettes, uncomplicated; Z88.8 Allergy status to other drugs, medicaments and biological substances; W51.XXXA Accidental striking against or bumped into by another person, initial encounter; W22.03XA Walked into furniture, initial encounter; Y92.9 Unspecified place or not applicable
CPT/HCPCS: 99212; A9270-GY; G0463

== ENCOUNTER 2018-04-23 08:28 | Emergency (ER) | payer OTHER ==
--- NOTE | 2018-04-23 08:58 | UC ---
UC General HPI - HPI Summary HPI Summary: HEre for flu like symptoms - States her has similar symptoms. Started last night - cough, congestion, fever and chills.H/A. Feels like she was hit by a truck. Nauseated and diarrhea. No abdominal pain. Able to tolerate fluids. MEds: Reviewed PMHx; RA - not on immunosuppressives Is using her inhaler that does help somewhat. DOes smoke but is trying to cut back - History of Current Complaint Stated Complaint: FLU LIKE SXS Time Seen by Provider: 04/23/18 08:39 Hx Last Menstrual Period: 2016 - Allergy/Home Medications Allergies/Adverse Reactions: Allergies Allergy/AdvReac Type Severity Reaction Status Date / Time aspirin Allergy Rash Verified 04/23/18 08:59 bupropion [From Wellbutrin] Allergy See Comment Verified 04/23/18 08:59 PMH/Surg Hx/FS Hx/Imm Hx Previously Healthy: Yes Endocrine History: Hypothyroidism Other History Of: Negative For: HIV, Hepatitis B, Hepatitis C, Anticoagulant Therapy - Surgical History Surgical History: Yes Surgery Procedure, Year, and Place: , 2000 2003, [facility]. Tubal Ligation , 2003, [facility]. Right Ankle Surgery, 2010, [place]. Hysterectomy, JAN 2017, [facility] - Family History Known Family History: Positive: Cardiac Disease, Hypertension, Diabetes, Other - RA - Social History Alcohol Use: None Substance Use Type: None Smoking Status (MU): Light Every Day Tobacco Smoker Type: Cigarettes Amount Used/How Often: 1/2 PPD for 21 years Length of Time of Smoking/Using Tobacco: 20 Years Have You Smoked in the Last Year: Yes When Did the Patient Quit Smoking/Using Tobacco: TWO WEEKS AGO Household Exposure Type: Cigarettes - Immunization History Most Recent Influenza Vaccination: Not the 2016/2016 Season Most Recent Tetanus Shot: 2009 Vaccination Up to Date: Yes Review of Systems All Other Systems Reviewed And Are Negative: Yes Constitutional: Positive: Fever, Chills ENT: Positive: Sore Throat, Nasal Discharge Respiratory: Positive: Shortness Of Breath, Cough Gastrointestinal: Positive: Diarrhea, Nausea Is Patient Immunocompromised?: No Physical Exam Triage Information Reviewed: Yes Appearance: Other: - mildly ill appearing Vital Signs Reviewed: Yes ENT: Positive: Pharyngeal erythema, Nasal congestion, TMs normal Neck exam: Normal Neck: Positive: Supple, Nontender Respiratory: Positive: Lungs clear, Normal breath sounds, Other: - diminished breath sounds. No W/R/R Cardiovascular: Positive: RRR, No Murmur Course/Dx - Course Course Of Treatment: This is a 38 yr old who presents with flu like symptoms. Assessment. Rapid flu: Negative. Dx; Viral syndrome. PLan. Continue supportive care. COntinue inhaler every 4-6 hours as needed. Tessalon pearles as needed for cough. If symptoms persist or worsen, call primary for further evaluation - Diagnoses Provider Diagnosis: Viral syndrome Discharge - Sign-Out/Discharge Documenting (check all that apply): Patient Departure All imaging exams completed and their final reports reviewed: No Studies - Discharge Plan Condition: Good Disposition: HOME Patient Education Materials: Viral Syndrome (ED) Referrals: Juana Cruz NP [Primary Care Provider] - Additional Instructions: Continue supportive care COntinue inhaler every 4-6 hours as needed Tessalon pearles as needed for cough If symptoms persist or worsen, call primary for further evaluation - Billing Disposition and Condition Condition: GOOD Disposition: Home
[2018-04-23 09:00] VITALS: BP 124/74
[2018-04-23 09:20] LABS: Influenza A Molecular NEGATIVE (Negative); Influenza B Molecular NEGATIVE (Negative)
== END 2018-04-23 09:51 | disposition home or self-care (01) ==
LOC: UCCORT 08:28
DX: B34.9 Viral infection, unspecified (principal); R05 Cough; R09.81 Nasal congestion; R19.7 Diarrhea, unspecified; M06.9 Rheumatoid arthritis, unspecified; F17.210 Nicotine dependence, cigarettes, uncomplicated; Z88.8 Allergy status to other drugs, medicaments and biological substances
CPT/HCPCS: 99212; G0463

== ENCOUNTER 2018-05-29 10:50 | Emergency (ER) | payer OTHER ==
[2018-05-29 11:31] VITALS: BP 111/80
--- NOTE | 2018-05-29 12:17 | UC ---
Knee Pain HPI - HPI Summary HPI Summary: Pt c/o left knee pain after hitting knee on hard surface as she was getting up to stand while sitting and also reports that her "knee twisted" while she stood th morning at ~ 0830. c/o pain with flexion more than extension. - History of Current Complaint Chief Complaint: UCLowerExtremity Stated Complaint: WC LEFT KNEE INJURY Time Seen by Provider: 05/29/18 11:45 Hx Obtained From: Patient Hx Last Menstrual Period: 2016 ?: No Onset/Duration: Sudden Onset, Lasting Hours, Still Present Severity Initially: Moderate Severity Currently: Moderate Pain Intensity: 7 Character: Dull, Aching, Stiffness Aggravating Factor(s): Movement, Weight Bearing Alleviating Factor(s): Rest, Position, Cold Associated Signs And Symptoms: Positive: Swelling Able to Bear Weight: Yes - painful - Risk Factors Septic Arthritis Risk Factor: Negative Gout Risk Factor: Negative - Allergies/Home Medications Allergies/Adverse Reactions: Allergies Allergy/AdvReac Type Severity Reaction Status Date / Time aspirin Allergy Rash Verified 04/23/18 08:59 bupropion [From Wellbutrin] Allergy See Comment Verified 04/23/18 08:59 PMH/Surg Hx/FS Hx/Imm Hx Previously Healthy: Yes Other History Of: Negative For: HIV, Hepatitis B, Hepatitis C, Anticoagulant Therapy - Surgical History Surgical History: Yes Surgery Procedure, Year, and Place: , 2000 2003, [facility]. Tubal Ligation , 2003, [facility]. Right Ankle Surgery, 2010, [place]. Hysterectomy, JAN 2017, [facility] - Family History Known Family History: Positive: Cardiac Disease, Hypertension, Diabetes, Other - RA - Social History Occupation: Employed Full-time Lives: With Family Alcohol Use: None Substance Use Type: None Smoking Status (MU): Light Every Day Tobacco Smoker Type: Cigarettes Amount Used/How Often: 1/2 PPD for 21 years Length of Time of Smoking/Using Tobacco: 20 Years Have You Smoked in the Last Year: Yes When Did the Patient Quit Smoking/Using Tobacco: TWO WEEKS AGO Household Exposure Type: Cigarettes - Immunization History Most Recent Influenza Vaccination: Not the 2015/2016 Season Most Recent Tetanus Shot: 2009 Vaccination Up to Date: Yes Review of Systems All Other Systems Reviewed And Are Negative: Yes Constitutional: Positive: Negative Eyes: Positive: Negative ENT: Positive: Negative Respiratory: Positive: Negative Cardiovascular: Positive: Negative Gastrointestinal: Positive: Negative Genitourinary: Positive: Negative Motor: Positive: Decreased ROM - left knee Neurovascular: Positive: Negative Musculoskeletal: Positive: Arthralgia, Decreased ROM, Myalgia Neurological: Positive: Negative Psychological: Positive: Negative Is Patient Immunocompromised?: No Physical Exam Triage Information Reviewed: Yes Appearance: Pain Distress Vital Signs: Initial Vital Signs Temp 97.2 F 05/29/18 11:25 Pulse 74 05/29/18 11:25 Resp 17 05/29/18 11:25 BP 111/80 05/29/18 11:25 Pulse Ox 99 05/29/18 11:25 Vital Signs Reviewed: Yes Eye Exam: Normal ENT Exam: Normal ENT: Positive: Hearing grossly normal Dental Exam: Normal Neck exam: Normal Respiratory Exam: Normal Respiratory: Positive: No respiratory distress Musculoskeletal: Positive: Strength Limited @ - left knee, generalized, ROM Limited @ - left knee generalized Neurological Exam: Normal Psychological Exam: Normal Skin Exam: Normal Diagnostics - Radiology No standard instances Radiology Interpretation Completed By: Radiologist - FINDINGS: The bones are in normal alignment. No joint effusion or fracture is seen. Joint spaces appear maintained. IMPRESSION: NO EVIDENCE FOR FRACTURE. Knee Pain Course/Dx - Differential Dx/Diagnosis Differential Diagnosis/HQI/PQRI: Bursitis, Fracture (Closed), Sprain, Strain Provider Diagnosis: Left knee sprain Discharge - Sign-Out/Discharge Documenting (check all that apply): Patient Departure All imaging exams completed and their final reports reviewed: Yes - Discharge Plan Condition: Stable Disposition: HOME Patient Education Materials: Knee Sprain (ED), R.I.C.E. Treatment (ED) Referrals: [facility] [place] [facility] REFERRAL [Outside] - If Needed Ross Hannah MD [Medical Doctor] - If Needed No Primary Care Phys,NOPCP [Primary Care Provider] - Additional Instructions: Please follow up with PCP and an orthopedic provider if needed. - Billing Disposition and Condition Condition: STABLE Disposition: Home
== END 2018-05-29 12:42 | disposition home or self-care (01) ==
LOC: UCCORT 10:50
DX: W22.8XXA Striking against or struck by other objects, initial encounter (principal); S83.92XA Sprain of unspecified site of left knee, initial encounter; X50.1XXA Overexertion from prolonged static or awkward postures, initial encounter; Y93.89 Activity, other specified; Y92.9 Unspecified place or not applicable; F17.210 Nicotine dependence, cigarettes, uncomplicated
CPT/HCPCS: 99212; G0463

== ENCOUNTER 2018-10-22 12:09 | Emergency (ER) | payer MEDICAID, OTHER ==
[2018-10-22 12:19] VITALS: BP 130/73
--- NOTE | 2018-10-22 12:41 | UC ---
Shortness of Breath HPI - HPI Summary HPI Summary: chest tightness / sob x 1 day started yesterday with sob , worse with exertion , better with rest pt. believes that her symptoms are due to Methotrexate since she had similar reaction 3 months ago and was better as soon she was off Methotrexate no chest pain, no calf pain , no cough , no wheezing, no fever or chills - History of Current Complaint Chief Complaint: UCAllergicReaction Stated Complaint: SHORTNESS OF BREATH Time Seen by Provider: 10/22/18 12:22 Hx Obtained From: Patient Hx Last Menstrual Period: 2017 ?: No Onset/Duration: Gradual Onset, Lasting Days - 1, Still Present Timing: Constant Current Severity: Moderate Dyspnea At: Rest, Exertion Aggravating Factors: Movement Alleviating Factors: Spontaneous Resolution Associated Signs & Symptoms: Negative: Cough (Productive), Cough (Nonproductive) , Cough (Bloody Sputum), Chest Pain w/Cough, Chest Pain Unrelated to Cough, Fever, Chills - Allergy/Home Medications Allergies/Adverse Reactions: Allergies Allergy/AdvReac Type Severity Reaction Status Date / Time aspirin Allergy Rash Verified 04/23/18 08:59 bupropion [From Wellbutrin] Allergy See Comment Verified 04/23/18 08:59 methotrexate Allergy Difficulty Verified 10/22/18 12:19 Breathing Home Medications: Home Medications Albuterol HFA INHALER* [Ventolin HFA Inhaler*] 1 puff INH Q4H PRN 10/22/18 [ History Confirmed 10/22/18] PMH/Surg Hx/FS Hx/Imm Hx - Additional Past Medical History Additional PMH: Rhuematoid arthritis av malformation Endocrine History: Hypothyroidism Other History Of: Negative For: HIV, Hepatitis B, Hepatitis C, Anticoagulant Therapy - Surgical History Surgical History: Yes Surgery Procedure, Year, and Place: , 2000 2003, [facility]. Tubal Ligation , 2003, [facility]. Right Ankle Surgery, 2010, [place]. Hysterectomy, JAN 2017, [facility] - Family History Known Family History: Positive: Cardiac Disease, Hypertension, Diabetes, Other - RA - Social History Alcohol Use: Rare Substance Use Type: None Smoking Status (MU): Light Every Day Tobacco Smoker Type: Cigarettes Amount Used/How Often: 1/2 PPD for 21 years Length of Time of Smoking/Using Tobacco: 20 Years Have You Smoked in the Last Year: Yes When Did the Patient Quit Smoking/Using Tobacco: TWO WEEKS AGO Household Exposure Type: Cigarettes - Immunization History Most Recent Influenza Vaccination: Not the 2015/2016 Season Most Recent Tetanus Shot: 2010 Vaccination Up to Date: Yes Review of Systems All Other Systems Reviewed And Are Negative: Yes Constitutional: Positive: Negative Skin: Positive: Negative Eyes: Positive: Negative ENT: Positive: Negative Respiratory: Positive: Shortness Of Breath Cardiovascular: Positive: Negative Is Patient Immunocompromised?: No Physical Exam Triage Information Reviewed: Yes Appearance: Well-Appearing, No Pain Distress, Well-Nourished Vital Signs: Initial Vital Signs Temp 97.6 F 10/22/18 12:13 Pulse 63 10/22/18 12:13 Resp 18 10/22/18 12:13 BP 130/73 10/22/18 12:13 Pulse Ox 100 10/22/18 12:13 Vital Signs Reviewed: Yes Eye Exam: Normal Eyes: Positive: Conjunctiva Clear ENT: Positive: Normal ENT inspection, Hearing grossly normal, Pharynx normal Neck: Positive: Supple, Nontender, No Lymphadenopathy Respiratory: Positive: Chest non-tender, Lungs clear, Normal breath sounds, Respiratory distress, Accessory muscle use, Wheezing Cardiovascular: Positive: RRR, No Murmur, Pulses Normal Skin Exam: Normal Shortness of Breath Dx - Differential Dx/Diagnosis Provider Diagnosis: SOB (shortness of breath) Discharge ED - Sign-Out/Discharge Documenting (check all that apply): Patient Departure All imaging exams completed and their final reports reviewed: No Studies - Discharge Plan Condition: Stable Disposition: HOME Prescriptions: predniSONE [Prednisone 20 MG TAB] 20 mg PO DAILY #7 tablet Patient Education Materials: Shortness of Breath (ED) Forms: *Work Release Referrals: No Primary Care Phys,NOPCP [Primary Care Provider] - As Soon As Possible Additional Instructions: may stop methotrexate prednisone 20 mg daily follow up with your pcp [place] - Billing Disposition and Condition Condition: STABLE Disposition: Home
== END 2018-10-22 12:36 | disposition home or self-care (01) ==
LOC: UCCORT 12:09
DX: R06.02 Shortness of breath (principal); R07.89 Other chest pain; Q23.9 Congenital malformation of aortic and mitral valves, unspecified; M06.9 Rheumatoid arthritis, unspecified; Z88.6 Allergy status to analgesic agent; Z88.8 Allergy status to other drugs, medicaments and biological substances; Z87.891 Personal history of nicotine dependence
CPT/HCPCS: 99212; G0463

== ENCOUNTER 2018-12-03 11:07 | Emergency (ER) | payer OTHER ==
[2018-12-03 12:22] VITALS: BP 116/55
[2018-12-03] MEDS ORDERED: Ibuprofen TAB* 600 MG PO ONE (12:58)
--- NOTE | 2018-12-03 13:00 | UC ---
Throat Pain/Nasal Lucho HPI - HPI Summary HPI Summary: Patient is a 38-year-old female presenting with left ear pain and nasal congestion 4 days. Patient notes a headache that started 4 AM this morning. Describes headache as throbbing and similar to the ones she gets with sinus infections. Also notes a recurrent rash she states is from yeast under her right breast. She was given antifungal pill a month ago and it resolved but it has returned last week. She denies sore throat and cough. Denies shortness breath and wheezing. Denies nausea, vomiting, diarrhea, and abdominal pain. - History of Current Complaint Chief Complaint: UCGeneralIllness Stated Complaint: HEADACHE LEFT EAR SKIN COMPLAINT Hx Obtained From: Patient Hx Last Menstrual Period: 2016 Onset/Duration: Gradual Onset, Lasting Days Severity: Moderate Pain Intensity: 8 Pain Scale Used: 0-10 Numeric - Allergies/Home Medications Allergies/Adverse Reactions: Allergies Allergy/AdvReac Type Severity Reaction Status Date / Time aspirin Allergy Rash Verified 12/03/18 12:23 bupropion [From Wellbutrin] Allergy See Comment Verified 12/03/18 12:23 methotrexate Allergy Difficulty Verified 12/03/18 12:23 Breathing Home Medications: Home Medications Ra Medication 12/03/18 [History] PMH/Surg Hx/FS Hx/Imm Hx Other History Of: Negative For: HIV, Hepatitis B, Hepatitis C, Anticoagulant Therapy - Surgical History Surgical History: Yes Surgery Procedure, Year, and Place: , 2000 2003, [facility]. Tubal Ligation , 2003, [facility]. Right Ankle Surgery, 2010, [place]. Hysterectomy, JAN 2017, [facility] - Family History Known Family History: Positive: Cardiac Disease, Hypertension, Diabetes, Other - RA - Social History Alcohol Use: Rare Substance Use Type: None Smoking Status (MU): Light Every Day Tobacco Smoker Type: Cigarettes Amount Used/How Often: 1/2 PPD for 21 years Length of Time of Smoking/Using Tobacco: 20 Years Have You Smoked in the Last Year: Yes When Did the Patient Quit Smoking/Using Tobacco: TWO WEEKS AGO Household Exposure Type: Cigarettes - Immunization History Most Recent Influenza Vaccination: Not the 2016/2016 Season Most Recent Tetanus Shot: 2009 Vaccination Up to Date: Yes Review of Systems All Other Systems Reviewed And Are Negative: Yes Constitutional: Positive: Negative. Negative: Fever, Chills Skin: Positive: Rash - under breast Eyes: Negative: Blurred Vision, Diplopia, Photophobia ENT: Positive: Ear Ache, Nasal Discharge, Sinus Congestion, Sinus Pain/ Tenderness. Negative: Sore Throat Respiratory: Positive: Negative. Negative: Cough Cardiovascular: Positive: Negative Gastrointestinal: Positive: Negative Musculoskeletal: Positive: Negative Neurological: Positive: Headache Physical Exam Triage Information Reviewed: Yes Appearance: Well-Appearing, No Pain Distress, Well-Nourished Vital Signs: Initial Vital Signs Temp 97.5 F 12/03/18 12:18 Pulse 70 12/03/18 12:18 Resp 16 12/03/18 12:18 BP 116/55 12/03/18 12:18 Pulse Ox 100 12/03/18 12:18 Vital Signs Reviewed: Yes Eyes: Positive: Conjunctiva Clear, Other: - PERRLA. EOM intact ENT: Positive: Hearing grossly normal, Pharyngeal erythema, Nasal congestion, Nasal drainage - PND, TMs normal, Uvula midline. Negative: TM bulging, TM dull , TM red, Tonsillar swelling, Tonsillar exudate, Sinus tenderness Neck exam: Normal Neck: Positive: Supple, Nontender, No Lymphadenopathy Respiratory Exam: Normal Respiratory: Positive: Lungs clear, Normal breath sounds, No respiratory distress. Negative: Crackles, Rhonchi, Stridor, Wheezing Cardiovascular Exam: Normal Cardiovascular: Positive: RRR Neurological: Positive: Alert Psychological: Positive: Age Appropriate Behavior Skin: Positive: Rashes - erythematous rash resembling intertrgo beneath right breast. no drainage or bleeding. Throat Pain/Nasal Course/Dx - Course Course Of Treatment: Discussed with patient to use flonase and mucinex for congestion relief and to follow up with pcp if symptoms persist. Instructed to take diflucan for intertrigo and to follow up if it does not resolve withing 10 days. Patient voiced understanding and agreed with the treatment plan. - Differential Dx/Diagnosis Provider Diagnosis: Intertriginous candidiasis, Upper respiratory infection Discharge ED - Sign-Out/Discharge Documenting (check all that apply): Patient Departure All imaging exams completed and their final reports reviewed: No Studies - Discharge Plan Condition: Stable Disposition: HOME Prescriptions: Fluconazole 150 MG TAB* [Diflucan 150 MG TAB*] 150 mg PO ONCE #10 tablet Fluticasone NASAL SPRAY 50MCG* [Flonase NASAL SPRAY 50MCG*] 2 spray BOTH NARES DAILY PRN #1 btl PRN Reason: Congestion guaiFENesin ER TAB [Mucinex*] 1,200 mg PO BID PRN #20 tab.er PRN Reason: Congestion Patient Education Materials: Upper Respiratory Infection (ED), Skin Yeast Infection (ED) Referrals: [facility] [place] [facility] [Outside] - If Needed Additional Instructions: Use Flonase and Mucinex to help relieve nasal congestion. You may continue to take ibuprofen as directed for pain relief. Take Diflucan as prescribed for treatment of your rash. Follow-up with your primary care physician or the referral listed below for further evaluation if the rash does not resolve within 10 days. - Billing Disposition and Condition Condition: STABLE Disposition: Home
== END 2018-12-03 13:26 | disposition home or self-care (01) ==
LOC: UCCORT 11:07
DX: J06.9 Acute upper respiratory infection, unspecified (principal); B37.2 Candidiasis of skin and nail; F17.210 Nicotine dependence, cigarettes, uncomplicated; H92.02 Otalgia, left ear; Z88.8 Allergy status to other drugs, medicaments and biological substances
CPT/HCPCS: 99212; A9270-GY; G0463

== ENCOUNTER 2019-01-21 09:16 | Emergency (ER) | payer OTHER ==
[2019-01-21 09:48] VITALS: BP 126/91
--- OUTSIDE RECORDS SUMMARY | 2019-01-21 09:54 | XMS REPORT | Summary of Care ---
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 factor ( Primary Dx); [address] Chronic pain of both shoulders; [place] [address] [address] Floor High risk medication use [phone] [place] [address] [phone] Allergies Active Allergy Reactions Severity Noted Date Comments Bupropion 11/20/2017 seizure documented as of this encounter (statuses as of 01/06/2019) Medications Medication Sig Dispensed Refills Start Date End Date Status naproxen (NAPROSYN) 0 10/31/2017 Active 500 MG tablet VENTOLIN HFA 108 (90 0 11/05/2017 Active Base) MCG/ACT inhaler levothyroxine Take 50 mcg 0 Active (SYNTHROID, by mouth LEVOTHROID) 50 MCG Daily tablet folic acid (FOLVITE) Take 1 tablet 30 tablet 11 09/16/2018 09/15/2019 Active 1 MG by mouth tabletIndications: daily Inflammatory arthritis predniSONE 20 MG Take 1 tablet 10 tablet 0 01/01/2019 01/31/2019 Active Oral Tablet by mouth (DELTASONE)Indicatio daily For ns: Inflammatory 7-10 days arthritis Leflunomide 10 MG Take 1 tablet 30 tablet 3 01/06/2019 01/05/2020 Active Oral Tablet by mouth (ARAVA)Indications: daily Rheumatoid arthritis of multiple sites with negative rheumatoid factor predniSONE Take 1-2 20 tablet 0 10/03/2018 01/06/2019 Discontinued (DELTASONE) 10 MG tablets for tabletIndications: 7-10 days Inflammatory arthritis documented as of this encounter (statuses as of 01/06/2019) Active Problems Problem Noted Date Chronic pain of both shoulders 01/06/2019 Numbness and tingling in right hand 11/15/2018 Rheumatoid arthritis 11/15/2018 Inflammatory arthritis 03/25/2018 High risk medication use 03/25/2018 documented as of this encounter (statuses as of 01/06/2019) Resolved Problems Problem Noted Date Resolved Date Pain in both hands 12/17/2017 03/25/2018 Pain of both elbows 12/17/2017 03/25/2018 Chronic pain of both knees 12/17/2017 03/25/2018 documented as of this encounter (statuses as of 01/06/2019) Social History Tobacco Use Types Packs/Day Years Used Date Light Tobacco Smoker Cigarettes 0.25 Smokeless Tobacco: Never Used Tobacco Cessation: Ready to Quit: No; Counseling Given: No Comments: 1/4 - 1/2 pack per day Alcohol Use Drinks/Week oz/Week Comments No Sex Assigned at Date Recorded Not on file Job Start Date Occupation Industry Not on file Not on file Not on file Travel History Travel Start Travel End No recent travel history available. documented as of this encounter Last Filed Vital Signs Vital Sign Reading Time Taken Comments Blood Pressure 135/86 01/06/2019 2:25 PM EST Pulse 99 01/06/2019 2:25 PM EST Temperature 37 01/06/2019 2:25 PM EST C (98.6 F) Respiratory Rate 17 01/06/2019 2:25 PM EST Oxygen Saturation 96% 01/06/2019 2:25 PM EST Inhaled Oxygen Concentration - - Weight 74.4 kg (164 lb) 01/06/2019 2:25 PM EST Height 160 cm (5' 3") 01/06/2019 2:25 PM EST Body Mass Index 29.05 01/06/2019 2:25 PM EST documented in this encounter Progress Notes Stephanie Jones MD - 01/06/2019 2:30 PM EST Subjective: Patient ID: Annamaria Damon is a 38 y.o. female. Chief Complaint: f/u for inflammatory arthritis HPI Annamaria is here for a follow up for possible inflammatory arthritis, most likely RA. Her serologies demonstrated CCP ab positive at 52. She had improvement with methotrexate but caused breathing problems and it was stopped. She has been off mtx for a couple months. Breathing is better. She has been having increased joint pains. Recently given prednisone and she had an improvement withjoint pains. She has joint swelling in the hands and knee. Morning stiffness in the hands that can last throughout the day. She states she has been told that her right lower lobe of her lung has diminished capacity, unknown if this started after methotrexate. This was discovered from when she was diagnosed with mastitis. Past Medical History: Diagnosis Date Asthma COPD with asthma Headache Hyperlipidemia Thyroid disease Past Surgical History: Procedure Laterality Date SECTION HYSTERECTOMY Family History Problem Relation Age of Onset Asthma Mother Hypertension Mother Alcohol abuse Father Hypertension Father Social History Tobacco Use Smoking status: Light Tobacco Smoker Packs/day: 0.25 Types: Cigarettes Smokeless tobacco: Never Used Tobacco comment: 1/ - 1/2 pack per day Substance Use Topics Alcohol use: No Drug use: No Allergies Allergen Reactions Wellbutrin [Bupropion] seizure Current Outpatient Medications Medication Sig Dispense Refill folic acid (FOLVITE) 1 MG tablet Take 1 tablet by mouth daily 30 tablet 11 levothyroxine (SYNTHROID, LEVOTHROID) 50 MCG tablet Take 50 mcg by mouth Daily naproxen (NAPROSYN) 500 MG tablet predniSONE (DELTASONE) 10 MG tablet Take 1-2 tablets for 7-10 days ( Patient not taking: Reported on 01/06/2019) 20 tablet 0 predniSONE 20 MG Oral Tablet (DELTASONE) Take 1 tablet by mouth daily For 7-10 days 10 tablet0 VENTOLIN HFA 108 (90 Base) MCG/ACT inhaler No current facility-administered medications for this visit. Review of Systems Constitutional: +fatigue HENT: Negative for sore throat. Eyes: Negative for blurred vision, double vision, pain and discharge. Respiratory: No shortness of breath Cardiovascular: Negative for lower extremity swelling, chest pain and palpitations. Gastrointestinal: Negative for heartburn, nausea, vomiting, abdominal pain constipation, and diarrhea. Genitourinary: Negative for dysuria, hematuria and flank pain. Musculoskeletal: +joint pains and swelling Skin: Negative for rash. Neurological: Negative for dizziness, sensory change, speech change, focal weakness, loss of consciousness, tingling/numbness and weakness. Endo/Heme/Allergies: Does not bruise/bleed easily. Objective: Vitals: 01/06/19 1425 BP: 135/86 Pulse: 99 Resp: 17 Temp: 37 C (98.6 F) SpO2: 96% Physical Exam Constitutional: Alert and oriented x3, no acute distress HEENT: Normocephalic, atraumatic, PERRLA Cardiovascular: Regular rate and rhythm, S1 normal and S2 normal. Lungs: Clear to auscultation b/l. No wheezing Abdomen: Soft, non-tender Musculoskeletal: no tenderness or synovitis Neurological: alert and oriented to person, place, and time. Extremities: no edema Skin: Skin is warm and dry. Assessment: Annamaria is here for a follow up for possible inflammatory arthritis, most likely RA. Her serologies demonstrated CCP ab positive at 52. She had improvement with methotrexate but caused breathing problems and it was stopped. She has been off mtx for a couple months. Breathing is better. Plan: 1. Inflammatory arthritis, suspected RA 2. B/L shoulder pain 3. High Risk Medication Use Plan: 1. Stopped MTX due to breathing problems. Will start Arava 10mg daily. Side effects of medication explained including immunosupressresion, myelosupression, liver toxicity, affects on the kidney. 2. B/L steroid injections completed 3. Routine labs ordered 4. Follow up in 3 months - Activities as tolerated. - Fall precautions emphasized. - Diet: low carb/low fat, more greens/vegetables, adequate hydration - Encouraged to maintain good sleep hygiene - Continue other medications as prescribed by PCP and other specialist. - DVT precautions especially long distance travel -RTC: 3 months PROCEDURE NOTE: after consent was obtained; and cleaning the area with iodine preparation using sterile technique, I injected both shoulders with 80mg of Methylprednisolone with 2ml of 1% lidocaine. The procedure was well tolerated. The patient is asked to continue to rest the injected area for a few more days before resuming regular activities. It may be more painful for the first 1-2 days. Watch for fever, or increased swelling or persistent pain in the area. Call or return to clinic prn if such symptoms occur or the symptoms fails to improve as anticipated. documented in this encounter Plan of Treatment Date Type Specialty Care Team Description 04/14/2019 Office Visit Rheumatology Stephanie Jones MD [address] [place] [address] [address] [place] [address] [phone] Name Type Priority Associated Diagnoses Order Schedule ALT Lab Routine Rheumatoid arthritis 1 Occurrences starting of multiple sites with 01/06/2019 until negative rheumatoid 07/07/2019 factor AST Lab Routine Rheumatoid arthritis 1 Occurrences starting of multiple sites with 01/06/2019 until negative rheumatoid 07/07/2019 factor CBC and Differential Lab Routine Rheumatoid arthritis 1 Occurrences starting of multiple sites with 01/06/2019 until negative rheumatoid 07/06/2019 factor Creatinine with GFR Lab Routine Rheumatoid arthritis 1 Occurrences starting of multiple sites with 01/06/2019 until negative rheumatoid 07/07/2019 factor Sedimentation rate, Lab Routine Rheumatoid arthritis 1 Occurrences starting automated of multiple sites with 01/06/2019 until negative rheumatoid 07/09/2019 factor Health Maintenance Due Date Last Done Comments MMR Vaccines (1 of 1 - Standard 1981 series) Pneumococcal Vaccine: Pediatrics 1986 (0 to 5 Years) and At-Risk Patients (6 to 64 Years) (1 of 1 - PPSV23) DTaP,Tdap,and Td Vaccines (1 - 1987 Tdap) HIV Screening 1993 Varicella Vaccines (1 of 2 - 13+ 1993 2-dose series) Cervical Cancer Screening 5 years 2001 Influenza Vaccine 11/12/2018 Pneumococcal Vaccine: 65+ Years (1 2045 of 2 - PCV13) HIB Vaccines Aged Out No longer eligible based on patient's age to complete this topic Hepatitis A Vaccines Aged Out No longer eligible based on patient's age to complete this topic Hepatitis B Vaccines Aged Out No longer eligible based on patient's age to complete this topic IPV Vaccines Aged Out No longer eligible based on patient's age to complete this topic documented as of this encounter Results Not on filedocumented in this encounter Visit Diagnoses Diagnosis Rheumatoid arthritis of multiple sites with negative rheumatoid factor - Primary Chronic pain of both shoulders Pain in joint, shoulder region High risk medication use Encounter for long-term (current) use of other medications documented in this encounter Administered Medications Medication Order MAR Action Action Date Dose Rate Site lidocaine (XYLOCAINE) 1 % 20 mg Given by Other 01/06/2019 2:45 PM Other with methylPREDNISolone acetate EST (DEPO-MEDROL) 80 mg Intra-articular, Once, Sun01/06/19 at 1445, For 1 dose lidocaine (XYLOCAINE) 1 % 20 mg with Given by Other 01/06/2019 2:46 PM EST Other methylPREDNISolone acetate (DEPO-MEDROL) 80 mg Intra-articular, Once, Sun01/06/19 at 1445, For 1 dose lidocaine (XYLOCAINE) 1 % Given by Other 01/06/2019 2:45 PM EST 20 mg Other injection 4 mL 4 mL, Infiltration, Once, Sun01/06/19 at 1445, For 1 dose documented in this encounter
--- NOTE | 2019-01-21 10:34 | UC ---
Dizzy HPI HPI Summary: dizziness x 1 day moderated symptoms worse with movements , better with rest + nausea and vomiting , mild abdominal pain no fever, no chills, no cold symptoms denies any ear pain , no sinus pain - History Of Current Complaint Chief Complaint: UCDizziness Stated Complaint: STOMACHE ACHE/DIZZY/NAUSEA/VOMITING Time Seen by Provider: 01/21/19 10:11 Hx Obtained From: Patient Hx Last Menstrual Period: 2016 Onset/Duration: Gradual Onset, Lasting Days - 1, Still Present Timing: Constant Severity Initially: Moderate Severity Currently: Moderate Pain Intensity: 0 Pain Scale Used: 0-10 Numeric Character: Head Spinning, Room Spinning, Lightheaded, Weak, Dizzy Aggravating Factor(s): Position Change, Change In Head Position Alleviating Factor(s): Rest Associated Signs And Symptoms: Positive: Nausea, Vomiting, Decreased Oral Intake. Negative: Diaphoresis, Tinnitus, Chest Pain, SOB, Palpitations, Unsteady Gait, Visual Changes, Change In Medication, Change In Diet - Allergies/Home Medications Allergies/Adverse Reactions: Allergies Allergy/AdvReac Type Severity Reaction Status Date / Time aspirin Allergy Rash Verified 01/21/19 09:47 bupropion [From Wellbutrin] Allergy See Comment Verified 01/21/19 09:47 methotrexate Allergy Difficulty Verified 01/21/19 09:47 Breathing PMH/Surg Hx/FS Hx/Imm Hx Endocrine History: Thyroid Disease, Hypothyroidism Other History Of: Negative For: HIV, Hepatitis B, Hepatitis C, Anticoagulant Therapy - Surgical History Surgical History: Yes Surgery Procedure, Year, and Place: , 2000 2003, [facility]. Tubal Ligation , 2003, [facility]. Right Ankle Surgery, 2010, [place]. Hysterectomy, JAN 2017, [facility] - Family History Known Family History: Positive: Cardiac Disease, Hypertension, Diabetes, Other - RA - Social History Alcohol Use: Rare Substance Use Type: None Smoking Status (MU): Light Every Day Tobacco Smoker Type: Cigarettes Amount Used/How Often: 1/2 PPD for 21 years Length of Time of Smoking/Using Tobacco: 20 Years Have You Smoked in the Last Year: Yes When Did the Patient Quit Smoking/Using Tobacco: TWO WEEKS AGO Household Exposure Type: Cigarettes - Immunization History Most Recent Influenza Vaccination: Not the 2016/2016 Season Most Recent Tetanus Shot: 2009 Vaccination Up to Date: Yes Review of Systems All Other Systems Reviewed And Are Negative: Yes Constitutional: Positive: Negative Skin: Positive: Negative Eyes: Positive: Negative ENT: Positive: Negative Respiratory: Positive: Negative Gastrointestinal: Positive: Abdominal Pain, Vomiting, Diarrhea, Nausea Genitourinary: Positive: Negative Is Patient Immunocompromised?: No Physical Exam Triage Information Reviewed: Yes Appearance: Well-Appearing, No Pain Distress, Well-Nourished Vital Signs: Initial Vital Signs Temp 97.1 F 01/21/19 09:45 Pulse 67 01/21/19 09:45 Resp 18 01/21/19 09:45 BP 126/91 01/21/19 09:45 Pulse Ox 100 01/21/19 09:45 Vital Signs Reviewed: Yes Eye Exam: Normal Eyes: Positive: Conjunctiva Clear ENT: Positive: Normal ENT inspection, Hearing grossly normal, Pharynx normal, TMs normal. Negative: Nasal congestion, Nasal drainage, Sinus tenderness Neck exam: Normal Neck: Positive: Supple, Nontender, No Lymphadenopathy Respiratory Exam: Normal Respiratory: Positive: Chest non-tender, Lungs clear, Normal breath sounds Cardiovascular Exam: Normal Cardiovascular: Positive: RRR, No Murmur Abdominal Exam: Normal Abdomen Description: Positive: Nontender, Soft Bowel Sounds: Positive: Present Neurological Exam: Normal Neurological: Positive: Alert UC Physical Exam Vital Signs On Initial Exam: Initial Vitals Temp Pulse Resp BP Pulse Ox 97.1 F 67 18 126/91 100 01/21/19 09:45 01/21/19 09:45 01/21/19 09:45 01/21/19 09:45 01/21/19 09:45 - Neurological Exam Neurological: Normal, Sensory/Motor Intact, CN Intact II-III, Speech Normal Dizzy Course/Dx - Differential Dx/Diagnosis Provider Diagnosis: Vertigo Discharge ED - Sign-Out/Discharge Documenting (check all that apply): Patient Departure All imaging exams completed and their final reports reviewed: No Studies - Discharge Plan Condition: Stable Disposition: HOME Prescriptions: Meclizine TAB* [Antivert 12.5 TAB*] 25 mg PO TID PRN #15 tab PRN Reason: Dizziness Patient Education Materials: Vertigo (ED) Forms: *Work Release Referrals: No Primary Care Phys,NOPCP [Primary Care Provider] - 7 Days - Billing Disposition and Condition Condition: STABLE Disposition: Home
== END 2019-01-21 10:27 | disposition home or self-care (01) ==
LOC: UCCORT 09:16
DX: R42 Dizziness and giddiness (principal); R11.2 Nausea with vomiting, unspecified; R10.9 Unspecified abdominal pain; F17.210 Nicotine dependence, cigarettes, uncomplicated; R19.7 Diarrhea, unspecified; Z88.6 Allergy status to analgesic agent; Z88.8 Allergy status to other drugs, medicaments and biological substances
CPT/HCPCS: 99212; G0463

== ENCOUNTER 2019-01-23 10:52 | Emergency (ER) | payer OTHER ==
[2019-01-23 11:29] VITALS: BP 111/81
--- NOTE | 2019-01-23 12:15 | UC ---
Headache HPI - HPI Summary HPI Summary: Pt c/o persistent LALA, that is occipital. Pt states that she has a hx of migraines but has not had a "headache in the back of her head" before. Pt denies injury or recent fall. - History Of Current Complaint Chief Complaint: UCHeadache Stated Complaint: LALA X 3DAYS Time Seen by Provider: 01/23/19 11:58 Hx Obtained From: Patient Hx Last Menstrual Period: 2017 ?: No Onset/Duration: Gradual Onset, Lasting Days, Still Present Onset Of Symptoms: Gradual Initially Headache Was: Moderate Currently Pain Is: Moderate Pain Intensity: 8 Timing: Constant Character: Dull, Throbbing, Pressure Location of Headache: Occipital Aggravating Factor(s): Bright Lights Associated Signs And Symptoms: Positive: Negative - Risk Factors SAH Risk Factors: Smoking Meningitis Risk Factors: Negative SDH Risk Factors: Negative Temporal Arteritis Risk Factors: Female - Allergies/Home Medications Allergies/Adverse Reactions: Allergies Allergy/AdvReac Type Severity Reaction Status Date / Time aspirin Allergy Rash Verified 01/23/19 11:29 bupropion [From Wellbutrin] Allergy See Comment Verified 01/23/19 11:29 methotrexate Allergy Difficulty Verified 01/23/19 11:29 Breathing Home Medications: Home Medications Acetaminophen [Acetaminophen Extra Strength] 1,500 mg PO ONCE 01/23/19 [History Confirmed 01/23/19] Leflunomide 10 mg PO DAILY 01/23/19 [History Confirmed 01/23/19] PMH/Surg Hx/FS Hx/Imm Hx Previously Healthy: Yes Neurological History: Migraine Other History Of: Negative For: HIV, Hepatitis B, Hepatitis C, Anticoagulant Therapy - Surgical History Surgical History: Yes Surgery Procedure, Year, and Place: , 2000 2003, [facility]. Tubal Ligation , 2003, [facility]. Right Ankle Surgery, 2010, [place]. Hysterectomy, JAN 2017, [facility] - Family History Known Family History: Positive: Cardiac Disease, Hypertension, Diabetes, Other - RA - Social History Occupation: Employed Full-time Lives: With Family Alcohol Use: Rare Substance Use Type: None Smoking Status (MU): Light Every Day Tobacco Smoker Type: Cigarettes Amount Used/How Often: 1/2 PPD for 21 years Length of Time of Smoking/Using Tobacco: 20 Years Have You Smoked in the Last Year: Yes When Did the Patient Quit Smoking/Using Tobacco: TWO WEEKS AGO Household Exposure Type: Cigarettes - Immunization History Most Recent Influenza Vaccination: Not the 2015/2016 Season Most Recent Tetanus Shot: 2010 Vaccination Up to Date: Yes Review of Systems All Other Systems Reviewed And Are Negative: Yes Constitutional: Positive: Negative Skin: Positive: Negative Eyes: Positive: Photophobia ENT: Positive: Negative Respiratory: Positive: Negative Cardiovascular: Positive: Negative Gastrointestinal: Positive: Negative Genitourinary: Positive: Negative Motor: Positive: Negative Neurovascular: Positive: Negative Musculoskeletal: Positive: Negative Neurological: Positive: Headache Psychological: Positive: Negative Is Patient Immunocompromised?: No Physical Exam Triage Information Reviewed: Yes Appearance: Well-Appearing Vital Signs: Initial Vital Signs Temp 97.9 F 01/23/19 11:25 Pulse 77 01/23/19 11:25 Resp 18 01/23/19 11:25 BP 111/81 01/23/19 11:25 Pulse Ox 99 01/23/19 11:25 Vital Signs Reviewed: Yes Eye Exam: Normal ENT Exam: Normal Dental Exam: Normal Neck: Positive: Tenderness @ - neck and upper back Respiratory Exam: Normal Cardiovascular Exam: Normal Musculoskeletal Exam: Normal Neurological Exam: Normal Psychological Exam: Normal Skin Exam: Normal Headache Course/Dx - Course Course Of Treatment: Denies recent or past tick bite. - Differential Dx/Diagnosis Differential Diagnosis/HQI/PQRI: Meningitis, Migraine, Tension Headache Provider Diagnosis: Tension headache Discharge ED - Sign-Out/Discharge Documenting (check all that apply): Patient Departure All imaging exams completed and their final reports reviewed: No Studies - Discharge Plan Condition: Stable Disposition: HOME Prescriptions: Cyclobenzaprine TAB* [Flexeril 10 MG TAB*] 10 mg PO Q12H PRN #6 tab PRN Reason: Pain - Mild Patient Education Materials: Tension Headache (ED) Referrals: [facility] [Outside] - If Needed No Primary Care Phys,NOPCP [Primary Care Provider] - Additional Instructions: Please follow up with your PCP as needed. - Billing Disposition and Condition Condition: STABLE Disposition: Home
== END 2019-01-23 12:24 | disposition home or self-care (01) ==
LOC: UCCORT 10:52
DX: G44.209 Tension-type headache, unspecified, not intractable (principal); F17.210 Nicotine dependence, cigarettes, uncomplicated; Z88.6 Allergy status to analgesic agent; Z88.8 Allergy status to other drugs, medicaments and biological substances
CPT/HCPCS: 99212; G0463

== ENCOUNTER 2019-04-03 11:56 | Emergency (ER) | payer OTHER ==
[2019-04-03 12:19] VITALS: BP 138/89
--- NOTE | 2019-04-03 12:21 | UC ---
Lower Extremity/Ankle HPI - HPI Summary HPI Summary: Right posterior ankle pain swelling onset 0830 s/p slip on ice; hx of Achilles tendon repair 2010, and subsequent injuries to area - last was 2016 - History of Current Complaint Chief Complaint: UCLowerExtremity Stated Complaint: RT ANKLE INJ Time Seen by Provider: 04/03/19 12:18 Hx Obtained From: Patient Hx Last Menstrual Period: 2016 ?: No Onset/Duration: Sudden Onset, Lasting Hours Severity Initially: Severe Severity Currently: Severe Pain Intensity: 9 Aggravating Factor(s): Standing, Ambulation Able to Bear Weight: No - Allergies/Home Medications Allergies/Adverse Reactions: Allergies Allergy/AdvReac Type Severity Reaction Status Date / Time aspirin Allergy Rash Verified 04/03/19 12:20 bupropion [From Wellbutrin] Allergy See Comment Verified 04/03/19 12:20 methotrexate Allergy Difficulty Verified 04/03/19 12:20 Breathing Home Medications: Home Medications Levothyroxine TAB* [Synthroid TAB*] 50 mcg PO DAILY 05/11/17 [History Confirmed 04/03/19] Albuterol HFA INHALER* [Ventolin HFA Inhaler*] 1 puff INH Q4H PRN 10/22/18 [ History Confirmed 04/03/19] Acetaminophen [Acetaminophen Extra Strength] 1,000 mg PO ONCE PRN 01/23/19 [ History Confirmed 04/03/19] Leflunomide 10 mg PO DAILY 01/23/19 [History Confirmed 04/03/19] PMH/Surg Hx/FS Hx/Imm Hx Previously Healthy: Yes Other History Of: Negative For: HIV, Hepatitis B, Hepatitis C, Anticoagulant Therapy - Surgical History Surgical History: Yes Surgery Procedure, Year, and Place: , 2000 2003, [facility]. Tubal Ligation , 2003, [facility]. Right Ankle Surgery, 2010, [place]. Hysterectomy, JAN 2017, [facility] - Family History Known Family History: Positive: Cardiac Disease, Hypertension, Diabetes, Other - RA - Social History Occupation: Employed Full-time Alcohol Use: Rare Substance Use Type: None Smoking Status (MU): Light Every Day Tobacco Smoker Type: Cigarettes Amount Used/How Often: 1/2 PPD for 21 years Length of Time of Smoking/Using Tobacco: 20 Years Have You Smoked in the Last Year: Yes When Did the Patient Quit Smoking/Using Tobacco: TWO WEEKS AGO Household Exposure Type: Cigarettes - Immunization History Most Recent Influenza Vaccination: Not the 2015/2016 Season Most Recent Tetanus Shot: 2009 Vaccination Up to Date: Yes Review of Systems All Other Systems Reviewed And Are Negative: Yes Musculoskeletal: Positive: Calf Tenderness, Decreased ROM, Edema Physical Exam Triage Information Reviewed: Yes Appearance: Well-Appearing, Well-Nourished, Pain Distress Vital Signs: Initial Vital Signs Temp 98.5 F 04/03/19 12:11 Pulse 83 04/03/19 12:11 Resp 20 04/03/19 12:11 BP 138/89 04/03/19 12:11 Pulse Ox 99 04/03/19 12:11 Eye Exam: Normal ENT Exam: Normal Dental Exam: Normal Neck exam: Normal Respiratory Exam: Normal Cardiovascular Exam: Normal Abdominal Exam: Normal Musculoskeletal: Positive: Strength Limited @, ROM Limited @, Edema @ - on posterior right ankle Lower Extremity Course/Dx - Course Course Of Treatment: hx obtained, exam performed ,meds reviewed, xray obtained. - Differential Dx/Diagnosis Differential Diagnosis/HQI/PQRI: Sprain, Strain Provider Diagnosis: Acute ankle pain Discharge ED - Sign-Out/Discharge Documenting (check all that apply): Patient Departure All imaging exams completed and their final reports reviewed: No Studies - Discharge Plan Condition: Stable Disposition: HOME Patient Education Materials: Achilles Tendon Rupture (ED) Forms: *Work Release Referrals: No Primary Care Phys,NOPCP [Primary Care Provider] - Additional Instructions: 1. use the edward, boot and crutches 2. Follow up with your ortho today and get an appointment 3. Rest, Ice elevate, compress 4. Ibuprofen or tylenol for pain. - Billing Disposition and Condition Condition: STABLE Disposition: Home
== END 2019-04-03 13:00 | disposition home or self-care (01) ==
LOC: UCCORT 11:56
DX: M25.571 Pain in right ankle and joints of right foot (principal); Z88.6 Allergy status to analgesic agent; Z88.8 Allergy status to other drugs, medicaments and biological substances; F17.210 Nicotine dependence, cigarettes, uncomplicated; Z91.81 History of falling
CPT/HCPCS: 99213; G0463